=== PATIENT | male | born 1990 | race African-American/Black ===

== ENCOUNTER 2018-05-15 06:26 | Emergency (ER) | payer MEDICAID, OTHER ==
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
[2018-05-15] MEDS ORDERED: LIDOCAINE 5% (700 MG) TRANSDERMAL ADH..PATCH TP ONE (09:02)
[2018-05-15] MEDS ORDERED: TRAMADOL HCL 50 MG TABLET PO ONE (09:02)
[2018-05-15] MEDS ORDERED: IBUPROFEN 600 MG TABLET PO ONE (09:05)
[2018-05-15] MEDS ORDERED: ACETAMINOPHEN 325 MG TABLET PO ONE (09:05)
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
[2018-05-15 09:20] VITALS: BP 123/69
== END 2018-05-15 09:24 | disposition home or self-care (01) ==
LOC: ER 06:26
DX: M54.2 Cervicalgia (principal); V47.5XXA Car driver injured in collision with fixed or stationary object in traffic accident, initial encounter
CPT/HCPCS: 70450; 72125; 99284